=== PATIENT | male | born 1950 | race Caucasian/White ===

== ENCOUNTER 2018-11-20 05:47 | Day surgery (SDC) | payer OTHER ==
[~2018-11-20] VITALS: Ht 180.3 cm; Wt 112.9 kg
[2018-11-20] MEDS ORDERED: fentaNYL 0.05 MG/ML VIAL ONE (07:28)
[2018-11-20] MEDS ORDERED: MIDAZOLAM 2 MG/2 ML VIAL ONE (07:28)
[2018-11-20] MEDS ORDERED: LIDOCAINE 2% 100 MG/5 ML UJET TP ONE (07:29)
[2018-11-20] MEDS ORDERED: MIDAZOLAM 2 MG/2 ML VIAL IVP ONE (08:30)
[2018-11-20] MEDS ORDERED: fentaNYL 0.05 MG/ML VIAL IVP ONE (08:30)
== END 2018-11-20 09:17 | disposition home or self-care (01) ==
LOC: MOR 05:47 → MMU 06:09 → MOR 09:17
PROVIDERS: ATTEND Internal Medicine Gastroenterology
DX: D12.7 Benign neoplasm of rectosigmoid junction (principal); K57.30 Diverticulosis of large intestine without perforation or abscess without bleeding; K31.89 Other diseases of stomach and duodenum; K64.8 Other hemorrhoids; I10 Essential (primary) hypertension; Z86.73 Personal history of transient ischemic attack (TIA), and cerebral infarction without residual deficits; Z90.49 Acquired absence of other specified parts of digestive tract
CPT/HCPCS: 36415; 43239; 45385; 86677; J2250; J3010

== ENCOUNTER 2019-04-12 11:04 | Emergency (ER) | payer OTHER ==
[~2019-04-12] VITALS: Ht 172.7 cm; Wt 117.0 kg
[2019-04-12 11:18] VITALS: BP 146/55
--- NOTE | 2019-04-12 11:22 | NUR ---
Patient ambulated to bed 1. RN evaluating patient at bedside.
--- NOTE | 2019-04-12 11:24 | NUR ---
AAO X 4 68 YR MALE C/O L SHOULDER PAIN X 1 WEEK. DENIES INJURY. PER PT SEEN BY PCP AND HAD XRAYS TAKEN. PT STATES NEVER RECIEVED RESULTS. PMH- HTN, STROKE 2019
[2019-04-12 13:12] VITALS: BP 132/74
--- NOTE | 2019-04-12 13:12 | NUR ---
Patient discharged with v/s stable. Written and verbal after care instructions given and explained. Patient verbalized understanding. Ambulatory with steady gait. All questions addressed prior to discharge. Advised to follow up with PMD.
== END 2019-04-12 13:12 | disposition home or self-care (01) ==
LOC: MED 11:04
DX: M25.512 Pain in left shoulder (principal); E11.9 Type 2 diabetes mellitus without complications; I10 Essential (primary) hypertension; Z86.73 Personal history of transient ischemic attack (TIA), and cerebral infarction without residual deficits
CPT/HCPCS: 73030; 99283